=== PATIENT | female | born 1940 | race Hispanic/Latino ===

== ENCOUNTER 2021-01-17 17:25 | Emergency (ER) | payer MEDICARE ==
[~2021-01-17] VITALS: Ht 160 cm; Wt 59.0 kg
[2021-01-17 18:38] LABS: INR 0.95; PROTHROMBIN TIME 12.9 seconds (11.9-14.5)
[2021-01-17 18:39] LABS: BASOPHILS % 0.4 % (0.0-1.0); EOSINOPHILS # (AUTO) 0.4 (0.0-0.4); EOSINOPHILS % 4.1 % (0.0-6.0); HEMATOCRIT 31.3 % (34.2-44.1); LYMPHOCYTES # (AUTO) 3.8 (1.0-3.2); LYMPHOCYTES % 41.9 % (18.0-39.1); MEAN CORPUSCULAR HEMOGLOBIN 31.9 pg (28-32); MEAN CORPUSCULAR HGB CONC 31.9 g/dL (31-35); MONOCYTES # (AUTO) 0.7 (0.2-0.8); MONOCYTES % 7.3 % (4.4-11.3); NEUTROPHILS # (AUTO) 4.2 (2.1-6.9); NEUTROPHILS % 45.9 % (38.7-80.0); PLATELET COUNT 279 x10e3/uL (140-360); RED BLOOD COUNT 3.13 x10e6/uL (3.6-5.1); RED CELL DISTRIBUTION WIDTH 13.5 % (11.7-14.4)
[2021-01-17 18:48] LABS: ALBUMIN/GLOBULIN RATIO 0.8 (0.8-2.0); ANION GAP 16.7 mmol/L (8-16); CALCIUM 8.5 mg/dL (8.4-10.2); CREATININE, SERUM 0.91 mg/dL (0.57-1.11); POTASSIUM 3.7 mmol/L (3.5-5.1)
[2021-01-17 19:12] LABS: AMYLASE 27 U/L (25-125); LIPASE 15 U/L (8-78)
[2021-01-17] MEDS ORDERED: SODIUM CHLORIDE 0.9% 50ML 50 ML ONE (20:47)
[2021-01-17] MEDS ORDERED: IOPAMIDOL 370 MG/ML 200 ML INFUS..BTL INJ ONE (20:48)
[2021-01-17 22:46] VITALS: BP 166/58
== END 2021-01-17 22:36 | disposition home or self-care (01) ==
LOC: ER 18:13
DX: K51.311 Ulcerative (chronic) rectosigmoiditis with rectal bleeding (principal); E11.9 Type 2 diabetes mellitus without complications; Z90.49 Acquired absence of other specified parts of digestive tract; Z88.8 Allergy status to other drugs, medicaments and biological substances
CPT/HCPCS: 36415; 71045; 74177; 80053; 82150; 83690; 85025; 85610; 85730; 99284; Q9967